=== PATIENT | male | born 1990 | race Two or more races ===

== ENCOUNTER 2020-06-19 18:35 | Emergency (ER) | payer SELFPAY ==
[~2020-06-19] VITALS: Ht 170.2 cm; Wt 73.5 kg
--- NOTE | 2020-06-19 19:02 | NUR ---
TOOK OVER PT CARE. PT IN BED 13 ON MONITOR AND PULSE OX. [id number]. WAS BROUGHT IN FOR INTOXICATION. AWAITING ORDERS.
--- NOTE | 2020-06-19 19:03 | NUR ---
BROUGHT TO CT
[2020-06-19 19:04] LABS: BASOPHILS % (AUTO) 0.5 % (0.0-2.0); EOSINOPHILS % (AUTO) 1.1 % (0.0-6.0); HEMATOCRIT 40 % (39-51); HEMOGLOBIN 13.6 g/dL (13.5-17.5); LYMPHOCYTES # (AUTO) 2.1 /CMM (0.8-4.8); LYMPHOCYTES % (AUTO) 37.4 % (20.0-44.0); MEAN CORPUSCULAR HGB CONC 34 g/dl (31.0-36.0); MEAN CORPUSCULAR VOLUME 89 fL (80-96); MONOCYTES # (AUTO) 0.3 /CMM (0.1-1.30); NEUTROPHILS # (AUTO) 3.1 /CMM (1.8-8.9); PLATELET COUNT (AUTO) 319 /CMM (150-450); RED BLOOD CELL COUNT(AUTO) 4.54 MIL/uL (4.5-6.0); WHITE BLOOD COUNT (AUTO) 5.7 K/uL (4.3-11.0)
[2020-06-19 19:12] LABS: CARBON DIOXIDE 25 mmol/L (21-32); CHLORIDE 103 mmol/L (98-107); GLUCOSE 78 mg/dL (74-106); POTASSIUM 3.5 mmol/L (3.5-5.1); SODIUM SERUM 142 mmol/L (136-145); UREA NITROGEN, BLOOD 15 mg/dL (7-18)
--- NOTE | 2020-06-19 19:24 | NUR ---
GIVEN ORANGE JUICE.
[2020-06-19 19:27] LABS: ACETAMINOPHEN < 2 ug/ml (10-30); ALANINE AMINOTRANSFERASE 31 U/L (12-78); ALBUMIN 3.7 g/dL (3.4-5.0); ALCOHOL, BLOOD 166 mg/dL (0-0); ALKALINE PHOSPHATASE 52 U/L (46-116); ASPARTATE AMINOTRANSFERASE 27 U/L (15-37); BILIRUBIN,DIRECT 0.1 mg/dL (0.0-0.2); BILIRUBIN,TOTAL 0.5 mg/dL (0.2-1.0); SALICYLATE 0.9 mg/dL (2.8-20.0); TOTAL PROTEIN, SERUM 7.1 g/dL (6.4-8.2)
--- NOTE | 2020-06-19 19:59 | NUR ---
AWAITING FOR PT TO PROVIDE URINE SAMPLE.
[2020-06-19 21:59] LABS: APPEARANCE,URINE Clear (CLEAR); BILIRUBIN,URINE Negative (NEGATIVE); BLOOD, URINE Negative Ery/uL (NEGATIVE); COLOR,URINE Yellow (YELLOW); KETONES,URINE Negative (NEGATIVE); LEUKOCYTE ESTERASE ,URINE Negative (NEGATIVE); NITRITE, URINE Negative (NEGATIVE); PH,URINE 5.5 (5.0-8.0); PROTEIN,URINE Negative (NEGATIVE); UGLUCOSE Negative (NEGATIVE); UROBILINOGEN,URINE 0.2 EU/dL (0.2)
--- NOTE | 2020-06-20 00:39 | NUR ---
PT AMBULATED TO THE RESTROOM. WHEN ASKED IF HE IS HOMELESS, STATED HE IS NOT.
--- NOTE | 2020-06-20 00:58 | NUR ---
Patient discharged to home in stable condition. Written and verbal after care instructions given. Patient verbalizes understanding of instruction. Pt ambulated with steady gait, vss.
[2020-06-20 01:02] VITALS: BP 121/66
== END 2020-06-20 01:02 | disposition home or self-care (01) ==
LOC: ER 18:40
DX: F10.10 Alcohol abuse, uncomplicated (principal); R51 Headache; Y90.6 Blood alcohol level of 120-199 mg/100 ml
CPT/HCPCS: 36415; 70450; 71045; 80048; 80076; 80305; 80307; 80329; 81001; 85025; 99285; G0480; 81000-TC